=== PATIENT | female | born 1995 | race Caucasian/White ===

== ENCOUNTER 2017-10-26 22:58 | Inpatient (IN) | payer OTHER ==
[2017-10-27] MEDS ORDERED: Ondansetron INJ* 2 MG/ML VIAL IV ONE (01:13)
[2017-10-27] MEDS ORDERED: Ondansetron INJ* 2 MG/ML VIAL ONE (01:13)
[2017-10-27] MEDS ORDERED: ACETYLCYSTEINE IVPB ONE ×5 (03:12→10:00)
[2017-10-27] MEDS ORDERED: D5W IVPB ONE ×5 (03:12→10:00)
[2017-10-27] MEDS ORDERED: Ondansetron INJ* 2 MG/ML VIAL IV PRN (03:47)
[2017-10-27] MEDS ORDERED: Docusate CAP* 100 MG PO PRN (03:47)
[2017-10-27] MEDS ORDERED: Al Hydrox/Mg Hydrox/Simet LIQ* 30 ML UDC PO PRN (03:47)
[2017-10-27] MEDS ORDERED: Senna TAB PO PRN (03:47)
--- NOTE | 2017-10-27 04:04 | ED ---
Denita Petersen Gabriel, scribed for David Silverman on 10/26/17 at 2314 . Substance Abuse/Use - HPI Summary HPI Summary: This patient is a 22 year old F BIBA to [facility] after taking 20-30 pills of acetaminophen, trazadone (100mg), and Zoloft (100mg) at 1930. She reports SI and feeling down recently due to problems with her . Patient denies CP, SOB, vomiting, and diarrhea. - History Of Current Complaint Stated Complaint: OVERDOSE Time Seen by Provider: 10/26/17 23:04 Hx Obtained From: Patient Ingestion History: Type/Name Of Drug - 20-30 pills of acetaminophen, trazadone ( 100mg), and Zoloft (100mg) Overdose Characteristics: Oral Associated Signs And Symptoms: Negative - CP, SOB, and vomiting, Other: - SI - Allergies/Home Medications Allergies/Adverse Reactions: Allergies Allergy/AdvReac Type Severity Reaction Status Date / Time No Known Allergies Allergy Verified 10/26/17 23:55 PMH/Surg Hx/FS Hx/Imm Hx Previously Healthy: No Psychiatric History: Reports: Hx Depression - Surgical History Surgery Procedure, Year, and Place: cholecystectomy - Family History Known Family History: Positive: Other - no pertinent family hx - Social History Hx Substance Use: Yes Substance Use Type: Reports: Prescribed Hx Tobacco Use: No Smoking Status (MU): Never Smoked Tobacco Review of Systems Negative: Fever Negative: Chest Pain Negative: Shortness Of Breath Negative: Vomiting Positive: Other - SI All Other Systems Reviewed And Are Negative: Yes Physical Exam - Summary Physical Exam Summary: Appearance: Drowsy appearing, no pain distress Skin: warm, dry, reflects adequate perfusion Head/face: normal Eyes: EOMI, LEBRON ENT: normal Neck: supple, non-tender Respiratory: CTA, breath sounds present Cardiovascular: RRR, pulses symmetrical Abdomen: non-tender, soft Bowel: present Musculoskeletal: normal, strength/ROM intact Neuro: normal, sensory motor intact, A&Ox3 Triage Information Reviewed: Yes Vital Signs On Initial Exam: Initial Vitals Temp Pulse Resp BP Pulse Ox 97.6 F 69 14 81/44 97 10/26/17 23:54 10/26/17 23:54 10/26/17 23:54 10/26/17 23:54 10/26/17 23:54 Vital Signs Reviewed: Yes Diagnostics - Vital Signs Vital Signs Temp Pulse Resp BP Pulse Ox 10/26/17 23:54 97.6 F 69 14 81/44 97 - Laboratory Lab Results: Lab Results 10/27/17 Range/Units 01:32 Acetaminophen 194 H* mcg/mL Lab Statement: Any lab studies that have been ordered have been reviewed, and results considered in the medical decision making process. - EKG 1:01 Cardiac Rate: NL EKG Rhythm: Sinus Rhythm - NSR at 65 BPM EKG Interpretation: No acute changes Course/Dx - Course Assessment/Plan: This patient is a 22 year old F [facility] taking 20- 30 pills of acetaminophen, trazadone (100mg), and Zoloft (100mg). An EKG reveals NSR. Blood work shows an acetaminophen level of 194. We discussed patient care with Dr. Diaz, hospitalist and they accepted the patient for admission. Patient is diagnosed with SI and Tylenol overdose. Patient will be admitted to [facility] with follow up by Dr. Diaz. The patient is agreeable with this plan. - Diagnoses Differential Diagnosis/HQI/PQRI: Positive: Depression, Suicidal Risk, Other - dod, suicidal attempt Provider Diagnoses: Suicidal overdose, Depression, Tylenol overdose - Physician Notifications Discussed Care Of Patient With: Mirna Diaz Time Discussed With Above Provider: 23:13 Instructed by Provider To: Other - We discussed patient care with Dr. Diaz, hospitalist and they accepted the patient for admission Discharge - Discharge Plan Condition: Stable Disposition: ADMITTED TO [facility] Referrals: Gricelda Drake MD [Primary Care Provider] - The documentation as recorded by the Denita alfaro Gabriel accurately reflects the service I personally performed and the decisions made by , David Silverman.
--- NOTE | 2017-10-27 05:40 | HP ---
CC: Dr. Gricelda Drake * HISTORY AND PHYSICAL: DATE OF ADMISSION: 10/27/17 TIME OF EVALUATION: 0400 PRIMARY CARE PHYSICIAN: Gricelda Drake MD CHIEF COMPLAINT: Overdose. HISTORY OF PRESENT ILLNESS: This is a 22-year-old female who was recently from her , who presented to the emergency room from [facility] after overdosing last evening around 7:30. The patient took about 20 to 30 tabs of Extra Strength Tylenol. She took 10 to 15 tabs of 100 mg of trazodone and a handful of Zoloft. The mother gives the history, she states that she has been staying with her grandparents since her has decided to leave her. She sent a text to her mother saying that she wanted to say goodbye and that she loved her. Her mother inquired more and discovered that she took pills. She had the patient's girlfriend check on her immediately and that was when she discovered she overdosed and was brought to [facility]. At [facility], Poison Control was called. The patient was given charcoal, she did vomit and then was brought here for monitoring and possibly acetylcysteine administration. On arrival here, the patient had a Tylenol level drawn at 194, Poison Control was called, and they recommended acetylcysteine administration. On my encounter, the patient wakes easily. She denies any pain or nausea. No vomiting, no discomfort, no chest pain or shortness of breath. Otherwise, review of systems is negative. She is being admitted to the ICU for an acetylcysteine drug for overdose of Tylenol. PAST MEDICAL HISTORY: 1. Recent diagnosis of insomnia and anxiety. 2. Cholecystectomy. MEDICATIONS: Trazodone and Zoloft were just started 2 weeks ago. ALLERGIES: No known drug allergies. FAMILY HISTORY: No history of mental health disorder. SOCIAL HISTORY: As mentioned, the patient recently is from her about 2 months ago, has been staying with her grandparents. 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 She is working on her master's degree. No tobacco use. She is a social drinker. No illicit drug use. REVIEW OF SYSTEMS: A 14-point review of systems are reviewed. Pertinent positives and negatives as mentioned in the HPI, otherwise negative. PHYSICAL EXAMINATION GENERAL: No acute distress, resting comfortably with her mother at the bedside. VITAL SIGNS: Temp 97.6, pulse rate 69, respiratory rate 14, oxygen saturation 97% on room air, blood pressure 81/44. HEENT: Head normocephalic. Pupils equal and reactive. Anicteric. Oropharynx : Mucous membranes moist. The patient was noted to have a black tongue. NECK: Supple. No lymphadenopathy. RESPIRATORY: Clear to auscultation. No wheezes, rhonchi, or rales. CARDIAC: Regular rate and rhythm. No murmurs, rubs, or gallops. ABDOMEN: Soft, nontender, nondistended. EXTREMITIES: No clubbing, cyanosis, or edema. +2 DPs. NEUROLOGIC: Alert and oriented x3. No focal neurologic deficits. DIAGNOSTIC STUDIES/LAB DATA: Acetaminophen level at 130, it was 194. Labs from [facility]: Sodium 139, potassium 2.6, chloride 102, bicarb 27, BUN 11, creatinine 0.9, glucose 106. Total bili 0.3, AST 16, ALT 42, alk phos 97. Serum hCG is negative. INR is 1. PTT 23. White count 9.65, hemoglobin 13.4, hematocrit 39, platelets 161. Salicylate done on arrival to [facility] was less than 5 and remaining of tox screen was negative. Alcohol negative. Urinalysis unremarkable. Radiographic Data: EKG, normal sinus rhythm with QTc of 435. ASSESSMENT: This is a 22-year-old female, who is recently from her , who presents to the emergency room from [facility] after overdosing on Tylenol, trazodone, and Zoloft, found to have an elevated Tylenol level despite getting charcoal, is now started on acetylcysteine. 1. Overdose. Assessment: As mentioned, the patient is now on acetylcysteine drip for the next 21 hours. Poison Control recommended repeating LFTs, coags with a Tylenol level at 19 hours into the drip, which has been ordered. I will also put in an order for psych consult and social work evaluation and one-to- one monitor. 2. FEN: The patient alert and oriented. Place her on d regular diet. 3. DVT prophylaxis: The patient scores a low risk. We will encourage ambulation. She is going to be in the ICU, so we will place her on SCDs as well when she is not ambulating. 4. Code status: Full code. TIME SPENT: Patient time, greater than 60 minutes spent doing the history and physical, more than half the time spent in direct patient contact. [id number]/[facility] #: [id number] MELISSA
[2017-10-27] MEDS: Heparin VIAL(*) 5000 UNITS/ML VIAL (FIVE THOUSAND) SUBCUT SCH ×2 (06:43→22:40)
--- NOTE | 2017-10-27 08:26 | PN ---
Subjective Date of Service: 10/27/17 Interval History: No c/o, hungry. Objective Active Medications: Al Hydrox/Mg Hydrox/Simethicone (Maalox Plus*) 30 ml PO Q6H PRN PRN Reason: INDIGESTION Docusate Sodium (Colace Cap*) 100 mg PO BID PRN PRN Reason: CONSTIPATION Heparin Sodium (Porcine) (Heparin Vial(*)) 5,000 units SUBCUT Q8HR JOE Last Admin: 10/27/17 06:43 Dose: 5,000 units Acetylcysteine 3,860 mg/ (Dextrose) 519.3 mls @ 125 mls/hr IVPB ONCE@0600 ONE Stop: 10/27/17 10:09 Last Admin: 10/27/17 06:27 Dose: Not Given Acetylcysteine 7,710 mg/ (Dextrose) 1,038.55 mls @ 62.5 mls/hr IVPB ONCE@1000 ONE Stop: 10/28/17 02:36 Ondansetron HCl (Zofran Inj*) 4 mg IV Q4H PRN PRN Reason: NAUSEA/VOMITING Senna (Senokot Tab*) 1 tab PO BID PRN PRN Reason: CONSTIPATION Vital Signs 10/27/17 10/27/17 10/27/17 04:00 04:10 04:42 Temperature 98.2 F Pulse Rate 56 67 61 Respiratory 15 5 16 Rate Blood Pressure 88/44 114/83 103/56 (mmHg) O2 Sat by Pulse 98 100 98 Oximetry 10/27/17 10/27/17 10/27/17 04:48 04:49 05:00 Temperature Pulse Rate 56 59 Respiratory 14 14 Rate Blood Pressure 90/48 92/44 (mmHg) O2 Sat by Pulse 98 98 Oximetry 10/27/17 10/27/17 10/27/17 05:30 05:42 05:44 Temperature Pulse Rate 72 77 72 Respiratory 9 9 13 Rate Blood Pressure 106/72 136/88 (mmHg) O2 Sat by Pulse 99 98 97 Oximetry 10/27/17 10/27/17 10/27/17 05:45 06:00 06:01 Temperature Pulse Rate 70 71 70 Respiratory 7 6 3 Rate Blood Pressure 124/73 114/83 (mmHg) O2 Sat by Pulse 96 98 98 Oximetry 10/27/17 10/27/17 10/27/17 06:04 06:25 07:00 Temperature Pulse Rate 73 69 Respiratory 16 18 16 Rate Blood Pressure 127/85 (mmHg) O2 Sat by Pulse 98 96 Oximetry 10/27/17 10/27/17 10/27/17 07:01 07:41 07:45 Temperature Pulse Rate 72 63 75 Respiratory 15 16 11 Rate Blood Pressure (mmHg) O2 Sat by Pulse 97 97 98 Oximetry 10/27/17 10/27/17 10/27/17 07:49 08:00 08:01 Temperature Pulse Rate 79 72 Respiratory 17 10 0 Rate Blood Pressure 139/92 (mmHg) O2 Sat by Pulse 96 98 Oximetry 10/27/17 08:03 Temperature Pulse Rate 78 Respiratory 8 Rate Blood Pressure (mmHg) O2 Sat by Pulse 97 Oximetry Oxygen Devices in Use Now: None Appearance: Alert, supine in ICU bed. In fair spirits. Looks comfortable. Eyes: No Scleral Icterus Neck: NL Appearance and Movements; NL JVP, No Thyroid Enlargement, Masses Respiratory: Symmetrical Chest Expansion and Respiratory Effort, Clear to Auscultation, Clear to Percussion Cardiovascular: NL Sounds; No Murmurs; No JVD, RRR, No Edema, - Extremities: No Edema, No Clubbing, Cyanosis, - Skin: No Rash or Ulcers, No Nodules or Sclerosis, - Neurological: Alert and Oriented x 3, NL Sensation Additional Lab and Data: Lab Results 10/27/17 Range/Units 01:32 Acetaminophen 194 H* mcg/mL Microbiology and Other Data: Microbiology 10/27/17 06:00 Nasal Screen MRSA (PCR)(BONNY) - Final Nasal Mrsa Negative Assess/Plan/Problems-Billing Assessment: - Patient Problems (1) Suicide attempt Current Visit: Yes Status: Acute Comment: I spoke with Dr. Cox. He states pt is safe to discharge from psychiatric viewpoint. He will have a SW arrange for pt to have a new therapist. Continue NAC IV infusion. INR, liver panel 2100 hrs 10/27. (2) Depressed Current Visit: Yes Status: Acute Code(s): F32.9 - MAJOR DEPRESSIVE DISORDER , SINGLE EPISODE, UNSPECIFIED SNOMED Code(s): 85939536 Comment: She was taking sertraline 100 mg daily and trazodone 100 mg hs, from her PCP. I advised her to omit the sertraline, take only the trazodone 100 mg hs until she sees her new therapist.
[2017-10-27] MEDS ORDERED: Ibuprofen TAB* 600 MG PO PRN (12:06)
--- NOTE | 2017-10-27 20:36 | CONS ---
CONSULTATION REPORT: DATE OF CONSULT: 10/27/17 ATTENDING PHYSICIAN: Shelton Rehman MD CONSULTING PHYSICIAN: Cesar Cox MD REASON FOR CONSULT: Suicidal overdose. SUBJECTIVE HISTORY: Ms. Hussein is a 22-year-old white female from [place] who is currently admitted to the intensive care unit following an episode where she intentionally overdosed on 20 to 30 tabs of extra strength Tylenol, 10 to 15 tablets of 100 mg trazodone, and an unspecified amount of 100 mg strength Zoloft. As I entered the room, the patient is smiling and tells me that she is embarrassed about this event. She states that she has got a lot going on in her life. She had been to her current in May 2017 ; however, within one month of that she discovered that he was cheating on her. They split up over the summer but got back together again and then sometime around the they split up again after she again discovered further infidelity. They had a honeymoon trip to [place] planned for early September, which she went on by herself. Since then, she has been seeing recent social media pictures of him with other women and she states that he has gotten more confrontational and nasty in their telephone conversations. The overdose was not planned and happened fairly spontaneously and she immediately regretted it and texted her mother about what happened. Currently, she has been staying with her maternal grandparents in [place], [place]. In terms of her mood functioning, she states that she has been up and down with all the changes in her relationship status. I did screen her for neurovegetative symptoms of depression. She was able to endorse feelings of guilt mostly related to the suicide attempt and also some reduction in her appetite. However, she denied difficulty with sleep, anhedonia, energy, concentration, or psychomotor functioning. She states that she did not have suicidal ideations at all until this episode and she has not had any further suicidal thoughts since the overdose. Currently her mother Laura Hussein is present and Laura vouches for her. The family feels that she is safe and that she would be appropriate receiving further care in the outpatient setting. PSYCHIATRIC HISTORY: The patient has no history of prior suicide attempts and she has no history of psychiatric hospitalization. She does see her family primary care provider, a nurse practitioner named Leslie Chahal at a family practice in [place], [place]. About a month ago, she was placed on a trial of Zoloft and trazodone, which the patient states that she has tolerated well but she is uncertain whether it is helpful at this point or not. Apparently when she was an adolescent, she took citalopram for several years for depression and anxiety. Currently the patient has been seeing a therapist named Bailey Garcia in [place], [place], but the patient wants to end this relationship given the fact that this therapist also sees her . The patient denies any history of abuse or neglect. She does indicate she has had one concussion in the past due to a sports related injury. She has no history of violence towards others. SUBSTANCE ABUSE HISTORY: The patient is a social alcohol drinker. She has no history of illicit drug abuse. She does not use tobacco products. PAST MEDICAL HISTORY: Significant for cholecystectomy in 2013 and surgery for a torn ACL in her knee in 2009. She also has a history of obesity. MEDICATIONS: Currently are, 1. Trazodone 100 mg p.o. q.h.s. 2. Zoloft 100 mg p.o. daily. ALLERGIES: She has no known drug allergies. FAMILY HISTORY: Significant for her mother who has suffered from depression in the past, although the mother is not currently on medications. There are no known suicides in either her mother's or father's families. SOCIAL HISTORY: The patient was born and raised in [place]. Her parents recently in 2014. She does have 1 older sister who is 24. Currently the patient is but from her secondary to his infidelity. She has no children. She is presybeterian, self-identifying as Pentecostalism and she attends a [employer] in [place], [place]. She is heterosexual but not currently sexually active and has no history of sexually transmitted diseases. 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 She has no history of legal problems. MENTAL STATUS EXAM: The patient is a young, somewhat heavyset white female with long brown hair, which is back in a ponytail. She is clean, well groomed, wearing a patient gown, lying propped up in a medical bed. She is calm, cooperative, easy to establish a rapport with. Speech has a normal rate, tone and volume and she makes excellent eye contact. Mood is euthymic with bright affect. Thought process is linear and goal directed. Thought content is significant for her desire to be discharged from the hospital. She is denying suicidal or homicidal ideations. She denies auditory or visual hallucinations. Insight and judgment are fair given her willingness to receive outpatient followup mental health treatment. Cognitively she is awake and alert with what would appear to be an average intellect. DIAGNOSES: Austin I: Adjustment disorder with depressed mood. Austin II: Deferred. ASSESSMENT: The patient is a 22-year-old recently white female with a recent history of depression and anxiety attributable to a tumultuous relationship with her who has been cheating on her. She came to this hospitalization due to an impulsive act, in which she overdosed on Tylenol, Zoloft and trazodone. She immediately regretted this and called her mother. At no point did she truly believe that this combination of medications would be lethal. She is jayant for safety at this time and would like to be discharged. She is willing to follow up with her outpatient primary care provider, but she is appropriately requesting referral to a new therapist given the fact that her current therapist is also working with her estranged . RECOMMENDATIONS TO PRIMARY TEAM: I do not believe that this patient is suicidal and therefore, I am taking her off one-to-one precautions. She does not warrant psychiatric hospitalization at this time, but I would recommend that she get hooked up with a new therapist in her own community. I have already spoken with the unit social studies department chair, Susu Pennington to see if we can connect her with resources in [facility], which is where she is residing. Psychiatry is signing off at this time; however, we can be reconsulted in the event of any changes in her presentation. [id number]/[facility] #: [id number] MELISSA
[2017-10-27 21:40] LABS: ALT 19 U/L (7-52); AST 13 U/L (13-39); Albumin 3.6 g/dL (3.2-5.2); Alkaline Phosphatase 57 U/L (34-104); Globulin 2.5 g/dL (2-4); Indirect Bilirubin 0.2 mg/dL (0.3-1.0); Total Protein 6.1 g/dL (6.4-8.9)
[2017-10-27 21:54] LABS: Acetaminophen < 15 mcg/mL
[2017-10-27 22:04] VITALS: BP 116/76
--- NOTE | 2017-10-28 10:55 | DS ---
DISCHARGE SUMMARY: DATE OF ADMISSION: 10/27/17 DATE OF DISCHARGE: 10/27/17 HISTORY: This 22-year-old woman presented from the [facility] after overdosing the night before around 7:30 p.m. She texted her mother. Her mother found out that the patient had taken an overdose of extra-strength Tylenol, trazodone, and Zoloft. The patient's acetaminophen level was 194. She was started on N- acetylcysteine. She did well in the hospital. There were no adverse effects visible when I saw her the next morning. This would have been more than 12 hours after her ingestion. Liver function tests, INR and repeat acetaminophen level are pending at 2100 hours tonight. Assuming these are acceptable, she will go home after the infusion is finished. She was seen in consultation by Dr. Cox, who felt that it was safe for her to be discharged home. He is having the construction ironworker arrange for patient to have a new therapist, who will be different than her estranged 's therapist. As the patient had only started taking sertraline a few weeks ago and was started on initial dose of 100 mg in conjunction with trazodone a 100 mg, I thought it would be cesar to omit the sertraline at this time, she will only take trazodone a 100 mg h.s. FINAL DIAGNOSES: 1. Acetaminophen and multiple drug overdose. 2. Depression. DISCHARGE MEDICATIONS: Trazodone 100 mg h.s. [id number]/[facility] #: [id number] MTDD
== END 2017-10-27 23:10 | disposition home or self-care (01) | DRG 918 ==
LOC: ED 22:58 → ICU 10-27 03:47
PROVIDERS: ADMIT Pediatrics; ATTEND Internal Medicine
DX: T39.1X2A Poisoning by 4-Aminophenol derivatives, intentional self-harm, initial encounter (principal); F32.9 Major depressive disorder, single episode, unspecified; T43.212A Poisoning by selective serotonin and norepinephrine reuptake inhibitors, intentional self-harm, initial encounter; T43.222A Poisoning by selective serotonin reuptake inhibitors, intentional self-harm, initial encounter; Y92.9 Unspecified place or not applicable; X58.XXXA Exposure to other specified factors, initial encounter; F43.21 Adjustment disorder with depressed mood; G47.00 Insomnia, unspecified; Z79.899 Other long term (current) drug therapy
CPT/HCPCS: 36415; 80076; 80329; 85610; 85730; 87641; 93005; A9270-GY; G0480; J0132; J1644; J2405; J7060